=== PATIENT | male | born 1995 | race Caucasian/White ===

== ENCOUNTER 2017-06-21 13:20 | Emergency (ER) | payer BC ==
[~2017-06-21] VITALS: Ht 185.4 cm; Wt 86.6 kg
[2017-06-21] MEDS ORDERED: PROZ10CA7 PO (13:33)
--- NOTE | 2017-06-21 14:31 | REP ---
CT BRAIN WITHOUT CONTRAST: HISTORY: Double vision. FINDINGS: Preliminary digital batter scaler radiograph is unremarkable. Bone window settings demonstrate an intact bony calvarium. Visualized paranasal sinuses are clear. Lateral, third, fourth ventricles are normal in size and position. Hernandez-white differentiation pattern is normal above and below the tentorium. There is no evidence of intracranial hemorrhage. No extra-axial fluid collection is seen. No mass or infarction is noted. IMPRESSION: Negative noncontrast brain CT. Signed by Amadou Mauro MD 06/21/2017 02:56 P
[2017-06-21 15:32] VITALS: BP 142/83
== END 2017-06-21 15:34 | disposition home or self-care (01) ==
LOC: M ED 13:20
DX: H53.2 Diplopia (principal); Z79.899 Other long term (current) drug therapy; Z88.5 Allergy status to narcotic agent